=== PATIENT | female | born 1955 | race Caucasian/White ===

== ENCOUNTER 2016-09-27 15:48 | Emergency (ER) | payer MEDICAID ==
[~2016-09-27] VITALS: Ht 165.1 cm; Wt 65.0 kg
[2016-09-27 15:50] VITALS: Ht 165.1 cm; Wt 65.0 kg
--- NOTE | 2016-09-27 19:10 | RADRPT ---
PROCEDURE: XR Right Ankle 3 Views. CLINICAL INDICATION: Right ankle pain and trauma TECHNIQUE: AP, oblique and lateral views of the right ankle was performed. COMPARISON: None. FINDINGS: The osseous structures are intact. No destructive bony lesions are observed. Interosseous spaces a ppear normal. Mild soft tissue swelling is identified over the anterior ankle and medial malleolus. IMPRESSION: Soft tissue swelling over the anterior ankle and medial malleolus. Ligamentous and tendinous injury is not excluded. If characterization of the ligaments and tendons is needed MRI is recommended. If there is high clinical suspicion for bony traumatic injury, further evaluation with CT should be considered. RPTAT: AA .Tawanda Serna MD, Date Time Electronically viewed and signed by .Tawanda eSrna MD, on 09/27/2016 19:10 .P/
--- NOTE | 2016-09-27 19:15 | ERD ---
ER Documentation Chief Complaint Date/Time DATE: 09/27/16 TIME: 19:14 Chief Complaint BIB SELF C/O RIGHT FOOT PAIN S/P FALL ON August HPI This 61-year-old female who presents the emergency department today complaining of right ankle pain since September 06. Patient states that she was walking between the grass in the concrete when she twisted her foot. States she is not taking any medication for the pain. Denies any fevers or chills. States that she brought here by her daughter for persistent pain. States she has pain with walking. ROS All systems reviewed and are negative except as per history of present illness. Medications Home Meds Active Scripts Naproxen* (Naprosyn*) 500 Mg Tablet, 500 MG PO BID Y for PAIN AND/OR INFLAMMATION, #30 TAB Prov:TETO ALEJANDRA PA-C 09/27/16 Allergies Allergies: Coded Allergies: No Known Allergy (Unverified , 09/27/16) PMhx/Soc History of Surgery: Yes (Cholecystectomy) Anesthesia Reaction: No Hx Neurological Disorder: No Hx Respiratory Disorders: No Hx Cardiac Disorders: No Hx Psychiatric Problems: No Hx Alcohol Use: No Hx Substance Use: No Hx Tobacco Use: No Smoking Status: Never smoker Physical Exam Vitals Vital Signs Date Time Temp Pulse Resp B/P Pulse Ox O2 Delivery O2 Flow Rate FiO2 09/27/16 15:50 98.5 76 18 169/79 98 Physical Exam Const: Pleasant, no acute distress Head: Atraumatic Eyes: Normal Conjunctiva ENT: Normal External Ears, Nose and Mouth. Neck: Full range of motion..~ No meningismus. Resp: Clear to auscultation bilaterally Cardio: Regular rate and rhythm, no murmurs Skin: No petechiae or rashes MSK: Right ankle with no obvious deformity. Mild effusion. No ecchymosis. Full active range of motion. Tenderness to palpation syndesmosis. Nontender navicular. Nontender base of the fifth metatarsal. Pulses 2+. Distal neurovascularly intact Neur: Awake and alert Psych: Normal Mood and Affect Results 24 hrs DIAGNOSTIC IMAGING REPORT Patient: KARY ENRIQUEZ : 1955 Age: 61 Sex: F MR #: [id number] DOS: 09/27/16 0000 Ordering MD: TETO ALEJANDRA PA-C Location: [facility] Room/Bed: PROCEDURE: XR Right Ankle 3 Views. CLINICAL INDICATION: Right ankle pain and trauma TECHNIQUE: AP, oblique and lateral views of the right ankle was performed. COMPARISON: None. FINDINGS: The osseous structures are intact. No destructive bony lesions are observed. Interosseous spaces appear normal. Mild soft tissue swelling is identified over the anterior ankle and medial malleolus. IMPRESSION: Soft tissue swelling over the anterior ankle and medial malleolus. Ligamentous and tendinous injury is not excluded. If characterization of the ligaments and tendons is needed MRI is recommended. If there is high clinical suspicion for bony traumatic injury, further evaluation with CT should be considered. RPTAT: AA .Tawanda Serna MD, MD Date Time Electronically viewed and signed by .Tawanda Serna MD, MD on 09/27/2016 19:10 .P/ CC: TETO ALEJANDRA PA-C Procedures/MDM This is a 61-year-old female who presents to the emergency department today complaining of right ankle pain since September 06 when she sustained a injury and twisted her ankle. Given patient's complaint of persistent pain I did obtain images Images of the right ankle show soft tissue swelling over the anterior aspect and medial malleolus. Ligamentous and tendinous injury is not excluded. Low suspicion for acute fracture dislocation. Patient is afebrile and otherwise well-appearing. Low suspicion for septic joint or gout. Given the patient's location of pain likely high ankle sprain. Have explained this to the patient. I explained her that she may benefit from an MRI and some physical therapy. I explained to her that she may do this as an outpatient. Patient and daughter understood. Patient declined pain medication here in the emergency department. I will give her a prescription for Naprosyn for home. She was also given crutches to help ambulate as well as an Aircast and Levi wrap for support. At this time the patient is stable for discharge and outpatient management. Patient should follow up with their PCP in the next 1-2 days. They may return to the emergency department sooner for any persistent or worsening of symptoms. Patient understood and agreed with the plan. Departure Diagnosis: Primary Impression: Ankle injury Encounter type: initial encounter Laterality: right Qualified Code: S99.911A - Ankle injury, right, initial encounter Condition: TETO Hernadnez PA-C Sep 27, 2016 19:15
[2016-09-27] MEDS ORDERED: NAPR-260 PO (19:26)
== END 2016-09-27 20:36 | disposition home or self-care (01) ==
LOC: FTE 15:48
DX: S99.911A Unspecified injury of right ankle, initial encounter (principal); X50.9XXA Other and unspecified overexertion or strenuous movements or postures, initial encounter; Y92.9 Unspecified place or not applicable
CPT/HCPCS: 29515; 73610; Z7502

== ENCOUNTER 2016-10-06 12:20 | Emergency (ER) | payer MEDICAID ==
[~2016-10-06] VITALS: Ht 167.6 cm; Wt 65.5 kg
[~2016-10-06 12:20] MED LIST: NAPR-260 PO
[2016-10-06 12:25] VITALS: Ht 167.6 cm; Wt 65.5 kg
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
== END 2016-10-06 13:00 | disposition home or self-care (01) ==
LOC: FTE 12:20
DX: S93.401A Sprain of unspecified ligament of right ankle, initial encounter (principal); R40.2412 Glasgow coma scale score 13-15, at arrival to emergency department; X50.1XXA Overexertion from prolonged static or awkward postures, initial encounter; Y92.9 Unspecified place or not applicable
CPT/HCPCS: 99282

== ENCOUNTER 2016-11-21 21:31 | Emergency (ER) | payer MEDICAID ==
[~2016-11-21] VITALS: Ht 167.6 cm; Wt 65.0 kg
[2016-11-21 21:40] VITALS: Ht 167.6 cm; Wt 65.0 kg
[2016-11-21] MEDS ORDERED: ACETAMINOPHEN 500 MG TAB PO STA (22:20)
[2016-11-21] MEDS ORDERED: ONDANSETRON (ODT) 4 MG TAB ODT STA (22:20)
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
--- NOTE | 2016-11-21 23:27 | RADRPT ---
PROCEDURE: CT Head without. CLINICAL INDICATION: Headache, nausea. TECHNIQUE: The study was performed utilizing a multi-slice, multidetector CT scanner. Direct spira l 1 mm axial sections were obtained through the head without the use of intravenous contrast materia l. 1 or more of the following dose reduction techniques were utilized: Automated exposure control, adjustment of the mA and/or kV according to patient's size, iterative reconstruction technique. Co kole and sagittal reformations were obtained. The images were reviewed on a PACS workstation. RADIATION DOSE: CTDIvol: 44.3 mGyDLP: 720.2 mGy-cm COMPARISON: No prior studies are available for comparison. FINDINGS: There is no intracranial hemorrhage, extra-axial fluid collection, mass lesion, midline shift or hyd rocephalus. The ventricles, sulci and cisterns are within normal limits. The white matter is unrem arkable. The lee-white matter differentiation is preserved. The basal cisterns are patent. The m idline structures are intact. The orbits, calvarium and extracranial soft tissues are normal in martha earance. The visualized paranasal sinuses, mastoid air cells and middle ear cavities are normally ae rated. There is pneumatization of the bilateral petrous apices without evidence of inflammatory cole ges, normal variant. There is suggestion of incomplete neural arch at C1, normal variant. IMPRESSION: 1. No acute intracranial abnormality. No intracranial hemorrhage, extra-axial fluid collection, ma ss lesion or hydrocephalous. RPTAT: HGAS .Aravind Naranjo MD, Date Time Electronically viewed and signed by .Aravind Naranjo MD, on 11/21/2016 23:26 .S/
[2016-11-21] MEDS ORDERED: HYDR-906 PO (23:39)
[2016-11-21] MEDS ORDERED: ACET500C5 PO (23:39)
[2016-11-21] MEDS ORDERED: CYCL-319 PO (23:39)
[2016-11-21 23:46] VITALS: BP 160/80; RESP 18; TEMP 98
== END 2016-11-21 23:48 | disposition home or self-care (01) ==
LOC: FTE 21:31
DX: S06.0X0A Concussion without loss of consciousness, initial encounter (principal); S39.012A Strain of muscle, fascia and tendon of lower back, initial encounter; V49.50XA Passenger injured in collision with unspecified motor vehicles in traffic accident, initial encounter
CPT/HCPCS: 70450; Z7502; Z7610